=== PATIENT | female | born 1945 | race Caucasian/White ===

== ENCOUNTER → 2018-04-27 16:30 | Outpatient (REF) | payer BC, SELFPAY ==
[2018-04-27 18:30] LABS: Erythrocyte Sedimentation Rate 15 mm/hr (0-30)
[2018-04-27 18:46] LABS: Alanine Aminotransferase 30 U/L (12-78); Albumin Level 3.9 gm/dL (3.4-5.0); Albumin/Globulin Ratio 1.3 (1.1-1.8); Alkaline Phosphatase 64 U/L (46-116); Anion Gap 13.5 mEq/L (5-15); Aspartate Amino Transferase 9 U/L (15-37); Bilirubin,Total 0.7 mg/dL (0.2-1.0); Blood Urea Nitrogen 28 mg/dL (7-18); Calcium 8.9 mg/dL (8.5-10.1); Carbon Dioxide 30 mmol/L (21.0-32.0); Chloride 105 mmol/L (98-107); Creatinine,Serum 1.18 mg/dL (0.55-1.02); Estimated Glomerular Filt Rate 45 ml/min (>60); GFR (African American) 55 ML/MIN (>60); Globulin 3.1 gm/dl (1.3-3.2); Glucose 159 mg/dL (74-106); Potassium 4.5 mmoL/L (3.5-5.1); Sodium 144 mmol/L (136-145); Thyroid Stimulating Hormone 1.48 uIU/ml (0.358-3.740); Uric Acid 6.7 mg/dL (2.6-7.2)
[2018-04-29 08:29] LABS: RA Latex Turbid. 12.9 IU/mL (0.0-13.9)
[2018-04-30 06:35] LABS: Vitamin B12 342 pg/mL (232-1245)
[2018-04-30 14:52] LABS: Antinuclear Antibodies, IFA Positive (.)
== END ==
LOC: LAB 16:30
PROVIDERS: Visit Provider Physician Assistant
DX: I10 Essential (primary) hypertension (principal)
CPT/HCPCS: 80053; 82607; 82652; 84443; 84550; 85651; 86038; 86431

== ENCOUNTER → 2018-06-23 08:52 | Outpatient (CLI) | payer BC, SELFPAY ==
--- NOTE | 2018-06-23 08:58 | CT_ITS ---
CT abdomen pelvis wo con INDICATION: REASON: LEFT LOWER QUAD PAIN increased to back at times nausea this morning ORDERING PHYSICIAN: LAN Rojas PATIENT AGE: 72 years COMPARISON: No prior studies available for comparison TECHNIQUE: No oral nor IV contrast utilized Axial images obtained with sagittal and coronal reformats. All CT scans at the facility use one or more dose reduction, viz: automated exposure control, ma/kV adjustment per patient size (including targeted exams where dose is matched to indication, i.e. head), or iterative reconstruction technique. FINDINGS: LUNG BASES. Minimal airspace disease at the right lung base just above diaphragm appears to reflect a mainly linear atelectasis. Mild elevation right hemidiaphragm associated. Left lung base clear. Benign 1 cm densely calcified granuloma just above left hemidiaphragm . Heart is normal in size. Is no note interval development of calcification proximal most LAD when compared with [facility] initial CTA heart test from 2009 Abdomen/pelvis. Lack of oral and IV contrast somewhat decreases sensitivity Liver. Normal size and appearance. No focal lesion. No biliary ductal dilatation. Spleen. Unremarkable. Pancreas. Unremarkable this noncontrast study. No biliary ductal dilatation.. Gallbladder contracted and small with no calcified stones. Adrenals unremarkable. tract: RIGHT KIDNEY. WNL. Unremarkable.. LEFT KIDNEY. Obstructive uropathy left. Small stone at the distal most left ureter just above the left UVJ. It measures just over 4.2 mm transverse. (On coronal image 52 appears to measure slightly greater up to 4.2 mm due to a the very thin prominence extending lateral). The second more inferior distal ureteral calculus is projected over the posterior left bladder. Measures 3.5 mmtransverse x4.5 mm length left. Likely just passing through the distal most lips of left UVJ into the bladder at the left trigone or may have passed already into the posterior bladder.. Mild hydronephrosis left kidney. Associated mild stranding about the left kidney likely reflects the obstructive uropathy but cannot exclude associated mild infection.. Wispy stranding outlines Gerota's fascia on the left, with wispy stranding extends outlining extending inferior Gerota's fascia on along the left left pelvic wall,. Minimal left periureteral stranding along the entire course of mildly dilated left ureter also noted.. This stranding along the left pelvic wall extends towards the diverticulosis at the sigmoid colon but I do not see a discrete inflamed diverticuli associated. -- Within Left kidney itself, note collection of calculi Lower pole calyx-.. Several calculi here are just adjacent one another and possibly subtle connected.. It appears of these calculi largest measures 7.6mm AP x 4 mm transverse x 7.5 mm height (axial image 70, coronal image 48)... Additional second smaller 7 mm calculus just lateral to this; & with third slightly smaller. 6 mm calculus just anterior at lower pole calyx left kidney PELVIS Uterus normal size. Left ovary identified: normal size 3.6 cm AP. Likely contains a near 16 mm cm cm left ovarian cyst.. Right ovary. Small unremarkable. No significant free fluid at the pelvis GI tract.. Large bowel: Diverticulosis of most extensive at proximal sigmoid colon, with scattered diverticuli throughout the left colon also evident... Upper normal wall thickness at sigmoid colon most likely reflecting lack of distention and underlying diverticulosis. No definitive acute diverticulitis.- Again note there is some wispy stranding from Gerota's fascia and extending along left pelvic sidewall representing adjacent to the diverticulosis but no discrete acute diverticulitis.. Right colon & transver
== END ==
PROVIDERS: PCP Family Medicine; Visit Provider Physician Assistant
DX: R10.32 Left lower quadrant pain (principal)
CPT/HCPCS: 74176

== ENCOUNTER → 2019-02-01 09:27 | Outpatient (CLI) | payer BC, SELFPAY | PROVIDERS: PCP Family Medicine; Visit Provider Physician Assistant | DX: G47.33 Obstructive sleep apnea (adult) (pediatric) (principal) | CPT/HCPCS: G0399 ==

== ENCOUNTER → 2019-10-24 15:42 | Outpatient (POV) | payer BC, SELFPAY | PROVIDERS: Visit Provider Nurse Practitioner Family | DX: Z00.00 Encounter for general adult medical examination without abnormal findings (principal) ==

== ENCOUNTER → 2019-10-28 08:32 | Outpatient (CLI) | payer BC, SELFPAY ==
--- NOTE | 2019-10-28 08:40 | US_ITS ---
PROCEDURE: US ABDOMEN LIMITED CLINICAL INDICATION: BLOATING,CONSTIPATION,DIARRHEA,ABD PAIN,N/V COMPARISON: No exams were available for comparison FINDINGS: PANCREAS: Unremarkable. No obvious mass or abnormal fluid collection. No ductal dilatation LIVER: No focal liver lesions demonstrated. There is diffuse fatty infiltration of the liver. Homogeneous echogenicity. No intrahepatic biliary ductal dilatation evident. There is appropriate direction of blood flow within a non dilated portal vein RIGHT KIDNEY: Unremarkable. Normal size and echogenicity. No hydronephrosis GALLBLADDER: No gallstones, there is mild gallbladder wall thickening. Small amount of sludge is noted. No gallbladder wall thickening, pericholecystic fluid, or biliary dilatation. IMPRESSION: Small amount of sludge within the gallbladder without stones or ancillary findings of acute cholecystitis. Fatty infiltrated liver. Dictated by: Willy Cassidy 10/28/2019 09:49 Electronically signed by Willy Cassidy in [place] 10/28/2019 09:49
== END ==
PROVIDERS: PCP Family Medicine; Visit Provider Nurse Practitioner Family
DX: R10.84 Generalized abdominal pain (principal); R11.2 Nausea with vomiting, unspecified; R14.0 Abdominal distension (gaseous); R19.4 Change in bowel habit; R19.7 Diarrhea, unspecified; R49.0 Dysphonia
CPT/HCPCS: 76705

== ENCOUNTER → 2020-12-05 13:33 | Outpatient (CLI) | payer BC, SELFPAY ==
--- NOTE | 2020-12-05 | CA_ITS ---
APPROVED REPORT Enterprise Engineer: GEORGI Laterality: Bilateral Study Quality: Good Indications: Dizziness, Near syncopal episode with blurred vision Risk Factors Hypertension: Smoking Doppler Spectral Velocity Analysis ECA (R) 87.40/15.40 cm/s ECA (L) 95.80/20.20 cm/s dICA (R) 93.50/36.70 cm/s dICA (L) 89.00/29.90 cm/s Jose Eduardo (R) 77.10/25.40 cm/s Jose Eduardo (L) 95.80/32.20 cm/s pICA (R) 68.10/19.50 cm/s pICA (L) 86.00/18.70 cm/s dCCA (R) 69.40/20.60 cm/s dCCA (L) 71.30/25.70 cm/s pCCA (R) 78.80/18.80 cm/s pCCA (L) 77.10/19.30 cm/s Vert (R) 43.80/19.20 cm/s Vert (L) 53.10/21.00 cm/s Findings Duplex evaluation demonstrates stenosis of the right proximal internal carotid artery <20% with PSV <140 cm/sec, EDV <100 cm/sec, and IC/CC Ratio <4.0.Duplex evaluation demonstrates stenosis of the left proximal internal carotid artery <20% with PSV <140 cm/sec, EDV <100 cm/sec, and IC/CC Ratio <4.0. Bilateral vertebral antgrade flow observed. Mild plaque formation noted in the right carotid bulb. Conclusion Duplex evaluation demonstrates stenosis of the right proximal internal carotid artery <20% with PSV <140 cm/sec, EDV <100 cm/sec, and IC/CC Ratio <4.0.Duplex evaluation demonstrates stenosis of the left proximal internal carotid artery <20% with PSV <140 cm/sec, EDV <100 cm/sec, and IC/CC Ratio <4.0. Bilateral vertebral antgrade flow observed. Mild plaque formation noted in the right carotid bulb. Electronically signed by : Marvin Car MD 12/05/2020 14:46:14
== END ==
PROVIDERS: PCP Family Medicine; Visit Provider Family Medicine
DX: R42 Dizziness and giddiness (principal)
CPT/HCPCS: 93880

== ENCOUNTER → 2021-08-14 09:51 | Outpatient (CLI) | payer BC, SELFPAY ==
[2021-08-14 10:54] LABS: Coronavirus 19, PCR Not Detected (NotDetected); Influenza A, PCR Not Detected (NotDetected); Influenza B, PCR Not Detected (NotDetected)
== END ==
PROVIDERS: Visit Provider Nurse Practitioner
DX: Z20.822 Contact with and (suspected) exposure to COVID-19 (principal)
CPT/HCPCS: C9803; U0003; U0005

== ENCOUNTER → 2021-10-16 13:30 | Outpatient (CLI) | payer OTHER, MEDICARE, SELFPAY ==
[2021-10-16 14:05] LABS: Influenza A, PCR Not Detected (NotDetected); Influenza B, PCR Not Detected (NotDetected)
[2021-10-16 15:15] LABS: Coronavirus 19, PCR Detected (NotDetected)
== END ==
PROVIDERS: PCP Family Medicine; Visit Provider Family Medicine
DX: U07.1 COVID-19 (principal)
CPT/HCPCS: C9803; U0003; U0005

== ENCOUNTER 2024-02-15 12:54 | Outpatient (CLI) | payer MEDICARE, SELFPAY ==
--- NOTE | 2024-02-15 12:57 | CA_ITS ---
FINAL REPORT TECHNIQUE: Color Doppler, duplex Doppler and martin scale sonography of the bilateral neck vasculature was performed. Velocities were measured in the carotid arteries. Stenosis evaluation based on velocity criteria. CLINICAL HISTORY: DIZZINESS,HTN COMPARISON: None FINDINGS: The peak systolic velocity of the right common carotid artery is 76 cm/sec and internal carotid artery 96 cm/sec. The diastolic velocity in the internal carotid artery is 25 cm/sec. The ICA/CCA ratio is 1.6. Visually, a small amount of plaque is seen. These findings are consistent with less than 50% stenosis. The external carotid artery is patent. The right vertebral artery is patent with antegrade flow. The peak systolic velocity of the left common carotid artery is 83 cm/sec and internal carotid artery 103 cm/sec. The diastolic velocity in the internal carotid artery is 38 cm/sec. The ICA/CCA ratio is 1.5. Visually, a small amount of plaque is seen. These findings are consistent with less than 50% stenosis. The external carotid artery is patent. The left vertebral artery is patent with antegrade flow. IMPRESSION: No evidence of significant carotid stenosis. Bilateral patent vertebral arteries. If indicated, CTA or MRA could further evaluate. Reviewed, Interpreted and Dictated by Brannon Mcgee III, MD Transcribed by Kaylee Forbes Authenticated and . [facility]
== END 2024-02-15 23:59 | disposition home or self-care (01) ==
LOC: RT 12:55
PROVIDERS: PCP Family Medicine; Visit Provider Family Medicine
DX: R42 Dizziness and giddiness (principal); R26.89 Other abnormalities of gait and mobility
CPT/HCPCS: 93880